=== PATIENT | female | born 1945 | race Caucasian/White ===

== ENCOUNTER 2016-11-27 19:15 | Inpatient (IN) | payer OTHER, MEDICARE ==
[~2016-11-27] VITALS: Ht 162.6 cm; Wt 68.0 kg
[~2016-11-27 19:15] MED LIST: ACIDOPHILUS1 CAP PO; ADVIL MIGRAINE200 MG PO; AMITRIPTYLINE H25 M1 PO; ARICEPT 5MG TAB5 MG PO; ARICEPT10 MG PO; AUGMENTIN 875875 MG PO; BACTRIM DS 8001 TAB PO; COLACE100 MG PO; ESCITALOPRAM10 MG PO; HYDROCORTISONE120 GM TOP; KEFLEX 250MG C250 MG PO; LEXAPRO 5MG5 MG PO; LINZESS145 MCG PO; NAPROSYN 500 M500 MG PO; NAPROSYN250 MG PO; NORVASC 5MG TAB5 MG PO; PRILOSEC 20MG C20 MG PO; PROBIOTIC FORMU1 CA1 PO; REMERON 7.5MG7.5 MG PO; ULTRAM(MONOGRAP50 MG PO
--- NOTE | 2016-11-27 19:35 | NUR ---
PT SHREE FROM [facility] C/O AMS FROM BASELINE DEMENTIA. PER MEDIC PT ABOUT 1800 HAD LOW GRADE FEVER AND STAFF AT [facility] NOTICED AMS FROM BASELINE. MEDIC ESTABISHED IV ACCESS #18 RW. PT IS A&0X1, PT KNOWS WHERE SHE IS, BUT NOT HER NAME OR THE YEAR. PER DAUGHTER AND PTS 2 SISTERS AT BEDSIDE PT IS USUALLY MORE WITH IT AND KNOWS WHAT IS HAPPENING. PER PTS SISTERS PT STATED YESTERDAY THAT WHEN SHE WAS ABOUT TO URINATE SHE WOULD GRAB HER GROIN AND YELL "OW ITS PAINFUL". PER PTS DAUGHTER SHE HAS A HX OF UTIS AND JUST GOT OFF ANTIBIOTICS LAST WK FOR A UTI. PT WAS [facility] ON ARRIVAL AND PER MEDIC WAS TACHY AT [facility]. PT IS BED RIDDEN PER DAUGHTER. PT IS DNR/DNI. BS PRIOR TO ARRIVAL BY MEDIC WAS 119. AWAITING PROVIDER ANUPAM
--- NOTE | 2016-11-27 19:48 | ED AMS/SEIZURE/WEAK/DIZZY ---
History of Present Illness General Chief Complaint: Altered Mental Status Stated Complaint: BIBA FOR AMS Source: patient, family, EMS Exam Limitations: no limitations Vital Signs & Intake/Output Vital Signs & Intake/Output Vital Signs Date Time Temp Pulse Resp B/P Pulse O2 O2 Flow FiO2 Ox Delivery Rate 11/28 0038 98.2 90 18 128/68 96 Room Air 11/27 2058 98.3 11/27 2058 98.3 11/27 1936 98 Room Air 11/27 1915 98.1 124 18 130/64 93 Room Air ED Intake and Output 11/28 0000 11/27 1200 Intake Total Output Total Balance Patient 150 lb Weight Allergies Coded Allergies: doxycycline (UNKNOWN - PER PT SON 01/15/16) Reconcile Medications AMITRIPTYLINE HCL (Amitriptyline Hydrochloride) 25 MG TABLET 1 TAB PO QHS MIGRAINE (Reported) Amlodipine (Norvasc 5MG Tab) 5 MG TAB 1 TAB PO DAILY BP (Reported) Docusate Sodium (Colace) 100 MG SGL 1 SGL PO DAILY STOOL SOFTENER (Reported) Donepezil Hydrochloride (Aricept) 10 MG TAB 1 TAB PO DAILY DEMENTIA (Reported ) Escitalopram Oxalate (Lexapro 5MG) 5 MG TAB 1 TAB PO DAILY MENTAL HEALTH ( Reported) Lactose-Reduced Food (Ensure Liquid) 237 ML LIQUID SUPPLEMENT (Reported) Linaclotide (Linzess) 145 MCG CAPSULE 1 CAP PO DAILY GI (Reported) Mirtazapine (Remeron 7.5MG (1/2 Of 15MG)) 7.5 MG HTAB 1 TAB PO QHS SLEEP HELP (Reported) Naproxen (Naprosyn) 250 MG TAB 1 TAB PO BID PAIN/INFLAMMATION (Reported) Triage Note: PT BIBA FROM [facility] C/O AMS FROM BASELINE DEMENTIA. PER MEDIC PT ABOUT 1800 HAD LOW GRADE FEVER AND STAFF AT [facility] NOTICED AMS FROM BASELINE. MEDIC ESTABISHED IV ACCESS #18 RW. PT IS A&0X1, PT KNOWS WHERE SHE IS, BUT NOT HER NAME OR THE YEAR. PER DAUGHTER AND PTS 2 SISTERS AT BEDSIDE PT IS USUALLY MORE WITH IT AND KNOWS WHAT IS HAPPENING. PER PTS SISTERS PT STATED YESTERDAY THAT WHEN SHE WAS ABOUT TO URINATE SHE WOULD GRAB HER GROIN AND YELL "OW ITS PAINFUL". PER PTS DAUGHTER SHE HAS A HX OF UTIS AND JUST GOT OFF ANTIBIOTICS LAST WK FOR A UTI. PT WAS [facility] ON ARRIVAL AND PER MEDIC WAS [facility]ACH[facility] AT [facility]. PT IS BED RIDDEN PER DAUGHTER. PT IS DNR/DNI. BS PRIOR TO ARRIVAL BY MEDIC WAS 119. AWAITING PROVIDER EVAL Triage Nurses Notes Reviewed? yes Onset: Abrupt Duration: day(s): (2) Timing: recent history Injury Environment: ECF Severity: severe Severity Numbers: 10 No Modifying Factors: none Associated Symptoms: POOR PO INTAKE, LETHARGY, AMS HPI: This is a 71-year-old female with history of dementia, chronic UTIs who [facility] chief complaint of lethargy, fever of 11.6 and tachycardia. According to the family member she hasn't been eating or drinking well lately and looks much more fatigued than baseline. Patient denies any chest pain cough or shortness of breath. She does complain of some lower abdominal pain and some nausea. History of frequent UTIs in the past which required current admissions to the hospital and then eventually permanent residence in the nursing facility. Past History Travel History Traveled to [place] past 21 day No Medical History Any Pertinent Medical History? 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 *No pertinent family history FH: myocardial infarction MOTHER FH: breast cancer in first degree relative SISTER FH: breast cancer in first degree relative Hx Contributory? No Review of Systems Review of Systems Constitutional: Reports: fever, malaise, weakness. EENTM: Reports: no symptoms. Respiratory: Denies: cough, short of breath, sputum production. Cardiovascular: Denies: chest pain. GI: Reports: abdominal pain. Genitourinary: Reports: no symptoms. Musculoskeletal: Reports: no symptoms. Skin: Reports: no symptoms. Neurological/Psychological: Reports: confusion. Hematologic/Endocrine: Denies: bruising, bleeding, polyuria, polydipsia. Immunologic/Allergic: Denies: splenectomy. All Other Systems: Reviewed and Negative Physical Exam Physical Exam General Appearance: lethargic, mild distress, thin Head: normal appearance Eyes: Bilateral: other (SUNKEN). Ears, Nose, Throat: DRY MUCOUS MEMBRANES Neck: normal inspection, supple, full range of motion Respiratory: normal breath sounds, chest non-tender, no respiratory distress Cardiovascular: tachycardia Peripheral Pulses: 2+ radial (R), 2+ radial (L) Gastrointestinal: soft, tenderness (BILATERAL LOWER QUADRANTS) Extremities: normal range of motion Neurologic/Psych: AROUSABLE, ORIENTED X 2 Skin: intact, normal color, warm/dry Core Measures ACS in differential dx? No CVA/TIA Diagnosis: No Severe Sepsis Present: No Septic Shock Present: No ED Sepsis Exam Date of Focused Sepsis Exam: 11/27/16 Time of Focused Sepsis Exam: 2100 Sepsis Cardiac Exam: Tachycardia Sepsis Resp Exam: CTA Sepsis Cap Refill Exam: <2 Sec Sepsis Peripheral Pulse Exam: Normal Sepsis Peripheral Pulse Location: Radial Sepsis Skin Color Exam: Pale Skin Temp/Moisture Exam: Warm/Dry Progress Differential Diagnosis: sepsis, UTI/pyelo, ACUTE KIDNEY INJURY, HYPOVOLEMIA, HYPONATREMIA Plan of Care: Orders Procedure Date/time Status Heart Healthy Diet 11/28 B Active CBC WITHOUT DIFFERENTIAL 11/28 06 Active BASIC ELECTROLYTES PLUS BUN&CR 11/28 06 Active Turn and Reposition 11/28 0340 Active Skin Integrity Protocol 11/28 034 Active Teach/Educate 11/28 313 Active Nutritional Intake, Monitor 11/28 031 Active Isolation 11/28 313 Active Patient Care Conference 11/28 031 Active Activity/Ambulation 11/28 0314 Active Pathway - chart 11/28 0226 Active Code Status 11/28 0226 Active Patient Data 11/28 0142 Active Admit to inpatient 11/28 0037 Active Vital Signs 11/28 0037 Active Code Status 11/28 0037 Complete House Staff 11/28 UNK Active VTE Mechanical Prophylaxis 11/28 UNK Active Vital Signs 11/28 UNK Complete RAPID VIRAL INFLUENZA A 11/27 1999 Complete Telemetry/Meat Blender 11/27 1958 Active Bernal, Insertion/Removal/Asses 11/27 1958 Active CULTURE,URINE 11/27 1958 Active BLOOD CULTURE 11/27 1958 Active URINALYSIS 11/27 1958 Complete TROPONIN LEVEL 11/27 1958 Complete PARTIAL THROMBOPLASTIN TIME 11/27 1958 Complete PROTHROMBIN TIME 11/27 1958 Complete LACTIC ACID 11/27 1958 Complete COMPREHENSIVE METABOLIC PANEL 11/27 1958 Complete CBC WITHOUT DIFFERENTIAL 11/27 1958 Complete EKG 11/27 1958 Active Intake & Output 11/27 1926 Active Current Medications Sig/Cirilo Start time Last Medication Dose Stop Time Status Admin Azithromycin 500 MG ONCE ONE 11/28 2345 CAN (Zithromax) 11/29 004 Dextrose/Water 250 ML (D5W) Amitriptyline HCl 25 MG AT BEDTIME 11/28 220 AC (Elavil 25 Mg. Tablet) Ceftriaxone Sodium 1,000 MG 11/28 220 AC (Rocephin) Mirtazapine 7.5 MG AT BEDTIME 11/28 2200 AC (Remeron) Amlodipine Besylate 5 MG DAILY 11/28 1000 AC (Norvasc) Docusate Sodium 100 MG DAILY 11/28 1000 AC (Colace) Donepezil HCl 10 MG DAILY 11/28 1000 AC (Aricept) Enoxaparin Sodium 40 MG DAILY 11/28 1000 AC (Lovenox) Escitalopram Oxalate 5 MG DAILY 11/28 1000 AC (Lexapro) Polyethylene Glycol 17 GM DAILY 11/28 1000 AC (Miralax) Laboratory Tests 11/27/16 2300: Urinalysis LIGHT H, Urine Color YEL, Urine Clarity TURBD H, Urine pH 8.5 H, Ur Specific [place] 1.020, Urine Protein 100 H, Urine Ketones NEG, Urine Nitrite NEG, Urine Bilirubin NEG, Urine Urobilinogen 0.2, Ur Leukocyte Esterase LARGE H, Ur Microscopic SEDIMENT EXAMINED, Urine RBC 15-25 H, Urine WBC > 75 H, Ur Epithelial Cells PACKD H, Granular Casts RARE H, Urine Mucus MOD H, Urine Hemoglobin LARGE H, Urine Glucose NEG 11/27/169: Lactic Acid Cancelled 11/27/162044: Anion Gap 12, Estimated GFR > 60, BUN/Creatinine Ratio 42.2 H, Glucose 97, Lactic Acid 1.2, Calcium 8.4, Total Bilirubin 0.6, AST 21, ALT 31, Alkaline Phosphatase 141 H, Troponin I 0.02, Total Protein 6.2 L, Albumin 3.0 L, Globulin 3.2, Albumin/Globulin Ratio 0.9 L, PT 13.9 H, INR 1.33 H, APTT 33, CBC w Diff NO MAN DIFF REQ, RBC 4.32, MCV 90.1, MCH 29.7, RDW 14.3, MPV 7.7, Gran % 72.3, Lymphocytes % 13.3 L, Monocytes % 13.1 H, Eosinophils % 0.5, Basophils % 0.8, Absolute Granulocytes 4.9, Absolute Lymphocytes 0.9 L, Absolute Monocytes 0.9 H, Absolute Eosinophils 0, Absolute Basophils 0.1, PUBS MCHC 32.9 L Microbiology 11/27 2299 URINE ROUT: Urine Culture - RECD 11/27 2044 BLOOD: Blood Culture - RECD 11/27 2029 BLOOD: Blood Culture - RECD Diagnostic Imaging: Viewed by Me: Radiology Read, CT Scan. Discussed w/RAD: Radiology Read, CT Scan. Radiology Impression: PATIENT: PREETI ALONSO PRESENT AGE: 71 PATIENT ACCOUNT NO: [id number] : 43 LOCATION: [facility] ORDERING PHYSICIAN: CORIN BAUMAN MD SERVICE DATE: 11/27/16 EXAM TYPE: CAT - CT ABD & PELVIS W IV CONTRAST EXAMINATION: CT ABDOMEN AND PELVIS WITH CONTRAST CLINICAL INFORMATION: Lower abdominal pain. Fever. COMPARISON: CT scan abdomen pelvis 09/08/2015. TECHNIQUE: Multidetector volumetric imaging was performed of the abdomen and pelvis before and after the IV administration of 95 mL of Optiray 320 intravenous contrast. Sagittal and coronal reformatted images were obtained on the technologist's workstation. DLP: 277.03 mGy-cm. FINDINGS: LUNG BASES: Partially visualized irregular lesion in the right infrahilar lung measuring 2.2 cm on image 1. Asymmetric elevation of the right diaphragm compared to left. LIVER, GALLBLADDER, AND BILIARY TREE: The liver is normal in size, shape, and attenuation. No focal hepatic lesion or biliary ductal dilatation is present. No gallstone within the gallbladder. No edema around the gallbladder. The extra hepatic CBD measures 8 mm. No calcified stone within the duct. PANCREAS: The pancreas is atrophic. No inflammation or mass. SPLEEN: Unremarkable. ADRENAL GLANDS: Unremarkable. KIDNEYS AND URETERS: There is hydronephrosis of the right kidney with dilatation of renal pelvis and calyces. There is multiple calcified stones in the kidney from punctate to about 1.5 cm in size. 1.5 cm stone is at the right renal pelvis. There is a right ureteral stent extending through the right ureter. The stent distal pigtail though remains in the distal right ureter has not entered the bladder. Left kidney and ureter are normal. BLADDER: Bernal catheter within the bladder. GASTROINTESTINAL TRACT: Marked diverticulosis of the sigmoid colon. Scattered diverticula throughout the remainder of the colon. Large volume of stool in the rectum and sigmoid. No acute change of the bowel. No diverticulitis. The appendix is not seen. No inflammation in the mesentery. The small bowel loops are unremarkable. ABDOMINAL WALL: No significant hernia is appreciated. LYMPH NODES: Normal. VASCULAR: Aneurysm of the aorta which has been stented. No evidence of aneurysmal leak. PELVIC VISCERA: Uterus is anteverted. No adnexal abnormality. OSSEOUS STRUCTURES: Multilevel degenerative change of the spine. Compression deformity at the superior endplate of L5. There is about 50% loss of height of the L1 vertebrae. No stimulator probe for the right sacral in place. IMPRESSION : 1. Partially visualized opacity at the right infrahilar lung. CT chest will be helpful for further evaluation. 2. Hydronephrosis right kidney with double-J stent in place. The distal portion of the stent overlies the distal right ureter now within the bladder. Multiple stones right kidney. 3. Bernal catheter within the bladder. 4. Marked diverticulosis of colon but no acute change of the bowel. DICTATED BY: ANTHONY PARKER MD DATE/TIME DICTATED:11/27/162249 DETONATOR MAKER :ALLISON DATE/TIME TRANSCRIBED:11/27/162249 CONFIDENTIAL, DO NOT COPY WITHOUT APPROPRIATE AUTHORIZATION. <Electronically signed in Other Vendor System> SIGNED BY: ANTHONY PARKER MD 11/28/16 0004 CXR Impression: PATIENT: PREETI ALONSO PRESENT AGE: 71 PATIENT ACCOUNT NO: [id number] : 43 LOCATION: [facility] ORDERING PHYSICIAN: CORIN BAUMAN MD SERVICE DATE: 11/27/16 EXAM TYPE: RAD - XRY-PORTABLE CHEST XRAY EXAMINATION: XR PORTABLE CHEST CLINICAL INFORMATION: Fever. Altered mental status. COMPARISON: Chest x-ray 09/10/2015 . Chest x-ray 09/08/2015 TECHNIQUE: Portable AP portable view of the chest was obtained. 11/27/2016 FINDINGS: Linear scarring right midlung. Overall volume loss right hemithorax compared to left stable since prior exam. No acute infiltrate. No pulmonary vascular congestion. No pleural effusion. No pneumothorax. Heart size is normal. Thoracic aorta is uncoiled. IMPRESSION: No acute change of the chest. DICTATED BY: ANTHONY PARKER MD DATE/TIME DICTATED:11/27/162042 DETONATOR MAKER:ALLISON DATE/TIME TRANSCRIBED:11/27/162042 CONFIDENTIAL, DO NOT COPY WITHOUT APPROPRIATE AUTHORIZATION. <Electronically signed in Other Vendor System> SIGNED BY: ANTHONY PARKER MD 11/27/162047 Initial ED EKG: NSR (@92 BPM) Rhythm Strip: sinus tachycardia Departure Departure Time of Disposition: 6 Disposition: STILL A PATIENT Condition: Stable Clinical Impression Primary Impression: Dehydration Secondary Impressions: Tachycardia Referrals: RIVKA FIORE,JOANNE Stinson (PCP/Family) Departure Forms: Customer Survey General Discharge Information Admission Note Spoke With: MARA LINDSEY MD Documentation of Exam: Documentation of any treatments & extenuating circumstances including Concerns Regarding Discharge (functional status, medication knowledge or non-compliance, living conditions, etc.) that warrant an admission rather than observation: [IV FLUIDS, IV ABX, MONITOR I/O, F/U CULTURES, UROLOGY CONSULT DR FARAH, CONSIDER CT CHEST] Critical Care Note Critical Care Note Critical Care Time: 30-74 min
--- NOTE | 2016-11-27 20:14 | NUR ---
DR BAUMAN IN FOR [facility]
--- NOTE | 2016-11-27 20:24 | NUR ---
THIS RN MEDICATED PT WITH IV TYLENOL AND LITER #1 NS BOLUS PER EMAR.
--- NOTE | 2016-11-27 20:26 | NUR ---
GL[facility] PLACED IN PT, UO 10CC IN TUBE, NOT ENOUGHT URINE TO SEND TO LAB FOR URINE TRIO. THIS PT STILL NEEDS URINE SAMPLE SENT TO LAB
--- NOTE | 2016-11-27 20:48 | RADIOLOGY REPORT ---
EXAMINATION: XR PORTABLE CHEST CLINICAL INFORMATION: Fever. Altered mental status. COMPARISON: Chest x-ray 09/10/2015 . Chest x-ray 09/08/2015 TECHNIQUE: Portable AP portable view of the chest was obtained. 11/27/2016 FINDINGS: Linear scarring right midlung. Overall volume loss right hemithorax compared to left stable since prior exam. No acute infiltrate. No pulmonary vascular congestion. No pleural effusion. No pneumothorax. Heart size is normal. Thoracic aorta is uncoiled. IMPRESSION: No acute change of the chest.
--- NOTE | 2016-11-27 20:57 | NUR ---
SITE #2 IV ACCESS ESTABLISHED BY THIS RN, LW #20 WITH NS BOLUS LITER #2 INFUSING.
--- NOTE | 2016-11-27 20:58 | NUR ---
BLOOD CULTURES COLLECTED AND SENT BY THIS RN, LABS COLLECTED AND SENT BY THIS RN (LAV, BARON, BLUE, SST)
--- NOTE | 2016-11-27 21:03 | NUR ---
PT REPOSITIONED IN BED FOR COMFORT PER REQUEST.
[2016-11-27 21:05] LABS: ABSOLUTE BASOPHIL COUNT 0.1 /CUMM (0.0-0.2); ABSOLUTE EOSINOPHIL COUNT 0 /CUMM (0.0-0.7); ABSOLUTE GRANULOCYTE CT 4.9 /CUMM (1.4-6.5); ABSOLUTE LYMPH COUNT 0.9 /CUMM (1.2-3.4); ABSOLUTE MONOCYTE COUNT 0.9 /CUMM (0.10-0.60); BASOPHIL % 0.8 % (0.0-2.0); EOSINOPHIL % 0.5 % (0-5); GRANULOCYTE % 72.3 % (42.2-75.2); MEAN CORPUSCULAR HGB 29.7 PG (27.0-31.0); MEAN CORPUSCULAR HGB CONC 32.9 G/DL (33.0-37.0); MEAN CORPUSCULAR VOLUME 90.1 FL (81.0-99.0); MEAN PLATELET VOLUME 7.7 FL (7.4-10.4); PLATELET COUNT 396 /CUMM (130-400); RBC DISTRIBUTION WIDTH 14.3 % (11.5-14.5); RED BLOOD CELL CT 4.32 /CUMM (4.20-5.40); WHITE BLOOD CELL COUNT 6.8 /CUMM (4.8-10.8)
[2016-11-27 21:10] LABS: PT 13.9 SEC (9.4-12.5); PTT 33 SEC (25-37)
--- NOTE | 2016-11-27 21:28 | NUR ---
LITER #3 INFUSING NS BOLUS.
[2016-11-27] MEDS ORDERED: ENSURE LIQUID237 ML (22:10)
--- NOTE | 2016-11-27 22:20 | NUR ---
PT TO CT SCAN VIA STRETCHER
--- NOTE | 2016-11-27 22:36 | NUR ---
PT BACK FROM CT SCAN VIA STRETCHER
--- NOTE | 2016-11-27 23:04 | NUR ---
URINE TRIO SENT BY THIS RN
--- NOTE | 2016-11-27 23:19 | NUR ---
DR BAUMAN REPOSITIONED [facility] CATHETER, THIS RN HUNG D51/2NS INFUSING AT 150ML/HR.
--- NOTE | 2016-11-28 00:04 | CT SCAN REPORT ---
EXAMINATION: CT ABDOMEN AND PELVIS WITH CONTRAST CLINICAL INFORMATION: Lower abdominal pain. Fever. COMPARISON: CT scan abdomen pelvis 09/08/2015. TECHNIQUE: Multidetector volumetric imaging was performed of the abdomen and pelvis before and after the IV administration of 95 mL of Optiray 320 intravenous contrast. Sagittal and coronal reformatted images were obtained on the technologist's workstation. DLP: 277.03 mGy-cm. FINDINGS: LUNG BASES: Partially visualized irregular lesion in the right infrahilar lung measuring 2.2 cm on image 1. Asymmetric elevation of the right diaphragm compared to left. LIVER, GALLBLADDER, AND BILIARY TREE: The liver is normal in size, shape, and attenuation. No focal hepatic lesion or biliary ductal dilatation is present. No gallstone within the gallbladder. No edema around the gallbladder. The extra hepatic CBD measures 8 mm. No calcified stone within the duct. PANCREAS: The pancreas is atrophic. No inflammation or mass. SPLEEN: Unremarkable. ADRENAL GLANDS: Unremarkable. KIDNEYS AND URETERS: There is hydronephrosis of the right kidney with dilatation of renal pelvis and calyces. There is multiple calcified stones in the kidney from punctate to about 1.5 cm in size. 1.5 cm stone is at the right renal pelvis. There is a right ureteral stent extending through the right ureter. The stent distal pigtail though remains in the distal right ureter has not entered the bladder. Left kidney and ureter are normal. BLADDER: Bernal catheter within the bladder. GASTROINTESTINAL TRACT: Marked diverticulosis of the sigmoid colon. Scattered diverticula throughout the remainder of the colon. Large volume of stool in the rectum and sigmoid. No acute change of the bowel. No diverticulitis. The appendix is not seen. No inflammation in the mesentery. The small bowel loops are unremarkable. ABDOMINAL WALL: No significant hernia is appreciated. LYMPH NODES: Normal. VASCULAR: Aneurysm of the aorta which has been stented. No evidence of aneurysmal leak. PELVIC VISCERA: Uterus is anteverted. No adnexal abnormality. OSSEOUS STRUCTURES: Multilevel degenerative change of the spine. Compression deformity at the superior endplate of L5. There is about 50% loss of height of the L1 vertebrae. No stimulator probe for the right sacral in place. IMPRESSION: 1. Partially visualized opacity at the right infrahilar lung. CT chest will be helpful for further evaluation. 2. Hydronephrosis right kidney with double-J stent in place. The distal portion of the stent overlies the distal right ureter now within the bladder. Multiple stones right kidney. 3. Bernal catheter within the bladder. 4. Marked diverticulosis of colon but no acute change of the bowel.
--- NOTE | 2016-11-28 00:14 | NUR ---
IN TO [facility] AND PT AWAITING ADMISSION.
--- NOTE | 2016-11-28 01:03 | NUR ---
HOUSE STAFF IN TO EVAL
--- NOTE | 2016-11-28 02:18 | NUR ---
Emergency Dept [facility] Admit Note: To be admitted to [facility] by DR. LINDSEY with OBSTRUCTIVE UROPATHY as the diagnosis, to 2NB #207-1 location. Nursing Bioprocessing Manufacturing Technician and admitting notified 11/28/16 at 0154
--- NOTE | 2016-11-28 02:31 | History & Physical ---
GENARO WHEELER MD 11/28/16 0230: General Information and HPI MD Statement: I have seen and personally examined PREETI ALONSO and documented this H&P. The patient is a 71 year old F who presented with a patient stated chief complaint of [AMS, fever and suprapubic pain]. Source of Information: family, W10 Exam Limitations: no limitations History of Present Illness: This is 71-year-old female with past medical history of lung cancer status post chemoradiation, advanced dementia, migraine headache, hypertension, hyperlipidemia, nephrolithiasis status post ESWL and right ureteral j-tube placement, urinary incontinence, recurrent UTI currently on maintenance dose nitrofurantoin was brought in by ambulance from [facility] after patient found confused, lethargic with fever of 101.6.. Patient has advanced dementia and also history of her gathered from patient's daughter over at bedside and w-10. As per w-10 patient had fewer of 101.6 at F with low blood pressure of 104/70. As per EMS note patient was complaining of groin pain while urinating. Patient had recurrent UTIs in the past and most recently was treated for urinary infection 2 weeks prior to admission. In ER patient noted afebrile. Patient received total of 4 L of IV fluid hydration with significant blood pressure improvement in mental status improvement. On evaluation in ER patient was pleasant lying comfortably in bed. On questioning patient complained of suprapubic pain denied any urinary frequency, burning. Patient also denies any chest pain, shortness of breath, nausea, vomiting, sick contact, abdominal pain, weakness. Patient's appetite was good and was asking for ENSURE. Patient's daughter who was at bedside denies any recent history of urological intervention DONE by patient's neurologist Dr. Oconnell. Allergies/Medications Allergies: Coded Allergies: doxycycline (UNKNOWN - PER PT SON 01/15/16) Home Med list AMITRIPTYLINE HCL (Amitriptyline Hydrochloride) 25 MG TABLET 1 TAB PO QHS MIGRAINE (Reported) Amlodipine (Norvasc 5MG Tab) 5 MG TAB 1 TAB PO DAILY BP (Reported) Docusate Sodium (Colace) 100 MG SGL 1 SGL PO DAILY STOOL SOFTENER (Reported) Donepezil Hydrochloride (Aricept) 10 MG TAB 1 TAB PO DAILY DEMENTIA (Reported ) Escitalopram Oxalate (Lexapro 5MG) 5 MG TAB 1 TAB PO DAILY MENTAL HEALTH ( Reported) Lactose-Reduced Food (Ensure Liquid) 237 ML LIQUID SUPPLEMENT (Reported) Linaclotide (Linzess) 145 MCG CAPSULE 1 CAP PO DAILY GI (Reported) Mirtazapine (Remeron 7.5MG (1/2 Of 15MG)) 7.5 MG HTAB 1 TAB PO QHS SLEEP HELP (Reported) Naproxen (Naprosyn) 250 MG TAB 1 TAB PO BID PAIN/INFLAMMATION (Reported) Compliance With Home Meds: GOOD Past History Travel History Traveled to [place] past 21 day No Medical History Neurological: migraine EENT: NONE Cardiovascular: aortic aneurysm, hypertension, hyperlipidemia Respiratory: lung ca s/p chemo/radiation Hepatic: NONE Renal: UTI Musculoskeletal: NONE Psychiatric: insomnia, mild intermittent dementia as pre daughter Endocrine: NONE Blood Disorders: NONE Cancer(s): lung cancer, LUNG CA 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 *No pertinent family history FH: myocardial infarction MOTHER FH: breast cancer in first degree relative SISTER FH: breast cancer in first degree relative Psychosocial History Where do you live? Extended Care Facility Services at Home: Nursing Primary Language: Malay Smoking Status: Never Smoked ETOH Use: denies use Illicit Drug Use: denies illicit drug use Living Will? yes Functional Ability ADLs Independent: dressing, eating, toileting, bathing. Ambulation: independent Review of Systems Review of Systems Constitutional: Reports: see HPI. Exam & Diagnostic Data Last 24 Hrs of Vital Signs/I&O Vital Signs Date Time Temp Pulse Resp B/P Pulse O2 O2 Flow FiO2 Ox Delivery Rate 11/28 0038 98.2 90 18 128/68 96 Room Air 11/27 2058 98.3 11/27 2058 98.3 11/27 1935 98 Room Air 11/27 1915 98.1 124 18 130/64 93 Room Air Intake & Output 11/28 0800 11/28 0000 11/27 1600 Intake Total Output Total 300 Balance -300 Output, Urine 300 Patient 150 lb Weight Physical Exam General Appearance Alert, No Acute Distress, ORIENTED TO SELF, NOT TO PLACE AND TIME Skin No Rashes HEENT Atraumatic, PERRLA, EOMI, Mucous Membr. moist/pink Neck Supple, No JVD Lymphatic Cervical nl Cardiovascular Regular Rate, Normal S1, Normal S2, No Murmurs Lungs Clear to Auscultation, Normal Air Movement Abdomen Normal Bowel Sounds, Soft, SUPRAPUBIC TENDERNESS Neurological Normal Speech, Strength at 5/5 X4 Ext, Normal Tone, Sensation Intact, Cranial Nerves 3-12 NL Extremities No Edema Vascular Normal Pulses, Pulses Symmetrical, capillari refill normal Last 24 Hrs of Labs/Tommie: Laboratory Tests 11/27/162299: Urinalysis LIGHT H, Urine Color YEL, Urine Clarity TURBD H, Urine pH 8.5 H, Ur Specific [place] 1.020, Urine Protein 100 H, Urine Ketones NEG, Urine Nitrite NEG, Urine Bilirubin NEG, Urine Urobilinogen 0.2, Ur Leukocyte Esterase LARGE H, Ur Microscopic SEDIMENT EXAMINED, Urine RBC 15-25 H, Urine WBC > 75 H, Ur Epithelial Cells PACKD H, Granular Casts RARE H, Urine Mucus MOD H, Urine Hemoglobin LARGE H, Urine Glucose NEG 11/27/162258: Lactic Acid Cancelled 11/27/162044: Anion Gap 12, Estimated GFR > 60, BUN/Creatinine Ratio 42.2 H, Glucose 97, Lactic Acid 1.2, Calcium 8.4, Total Bilirubin 0.6, AST 21, ALT 31, Alkaline Phosphatase 141 H, Troponin I 0.02, Total Protein 6.2 L, Albumin 3.0 L, Globulin 3.2, Albumin/Globulin Ratio 0.9 L, PT 13.9 H, INR 1.33 H, APTT 33, CBC w Diff NO MAN DIFF REQ, RBC 4.32, MCV 90.1, MCH 29.7, RDW 14.3, MPV 7.7, Gran % 72.3, Lymphocytes % 13.3 L, Monocytes % 13.1 H, Eosinophils % 0.5, Basophils % 0.8, Absolute Granulocytes 4.9, Absolute Lymphocytes 0.9 L, Absolute Monocytes 0.9 H, Absolute Eosinophils 0, Absolute Basophils 0.1, PUBS MCHC 32.9 L Microbiology 11/27 2299 URINE ROUT: Urine Culture - RECD 11/27 2044 BLOOD: Blood Culture - RECD 11/27 2029 BLOOD: Blood Culture - RECD Diagnostic Data EKG Results Normal sinus rhythm at rate of 98, no acute ST-T changes, QTC 491 CXR Results Unremarkable. No acute change of the chest. Other Results CT ABD & PELVIS W IV CONTRAST: 1. Partially visualized opacity at the right infrahilar lung. 2. Hydronephrosis right kidney with double-J stent in place. The distal portion of the stent overlies the distal right ureter now within the bladder. Multiple stones right kidney. 3. Bernal catheter within the bladder. 4. Marked diverticulosis of colon but no acute change of the bowel. Assessment/Plan Assessment: This is 71-year-old female with PMH of lung cancer s/p chemoradiation, advanced dementia, migraine headache, hypertension, hyperlipidemia, nephrolithiasis s/p ESWL and right ureteral j-tube placement, urinary incontinence, recurrent UTI currently on maintenance dose nitrofurantoin was brought in by ambulance from [facility] after patient found confused, lethargic with fever of 101.6 found to have dirty urine on urinalysis with suprapubic tenderness likely suggestive of complicated UTI in setting of obstructive uropathy and right hydronephrosis. 1. Sepsis secondary to both patient Complicated UTI in setting of obstructive uropathy and right hydronephrosis Patient had recurrent UTI and was maintain on nitrofurantoin but as per microbiology report patient had frequent Escherichia coli urinary infection which is very resistant to nitrofurantoin - Admit to general medicine floor - Follow-up blood and urine culture - Start empiric IV ceftriaxone - Continue IV fluid hydration 2. Nephrolithiasis with obstructive uropathy s/p right J-tube placement - Urology consult in a.m. 3. Dementia Continue Aricept 4. Depression Continue home dose amitriptyline, Lexapro, Remeron 5. Hypertension Continue amlodipine 5 mg in a.m. 6. DVT prophylaxis Subcutaneous Lovenox 7. DNR/DNI As Ranked By This Provider Problem List: 1. Hydronephrosis 2. Sepsis due to urinary tract infection Core Measures/Miscellaneous Acute Coronary Syndrome ACS Diagnosis: No Cerebrovascular Accident CVA/TIA Diagnosis: No Congestive Heart Failure CHF Diagnosis: No Venous Thromboembolism VTE Risk Factors: Age > 40 VTE Prophylaxis Ordered Inpt: Pharm- Lovenox No Mech VTE prophylaxis d/t: No contraindications No VTE Pharm Prophylaxis d/t: No contraindications VTE Diagnosis: No VTE Type: NONE VTE Confirmed by (Test): NONE Severe Sepsis Severe Sepsis Present: No BC x2: Yes Lactic Acid x2: No (first lactic acid was normal) IV ABX Broad Spectrum: Yes NS/LR Started: Yes Septic Shock Septic Shock Present: No Miscellaneous Documentation Attending Case Discussed With: MARA LINDSEY MD Primary Care Physician: JOANNE TINEO MD Patient sees these Specialists deep Level of Patient Care: General Medicine Consults Needed: Consulting Specialty: Urology Resident Review Statement Resident Statement: examined this patient, discussed with graduate internship, agreed with graduate internship, discussed with family, reviewed EMR data (avail), reviewed images, amended to note Other Findings: see HPI ALISA LINDSEY MD 11/28/16 0628: Attending MD Review Statement Attending Statement Attending MD Statement: examined this patient, discuss w/resident/PA/BINDER STRIPPER MACHINE, agreed w/resident/PA/BINDER STRIPPER MACHINE, discussed with family Attending Assessment/Plan: 71 yo F with h/o lung cancer s/p chemoradiation, dementia, HTN, HLD, nephrolithiasis, UI, recurrent UTIs, last admitted to [place] (Aug 2015) for sepsis of urological origin and obstructive uropathy s/p right ureteral stone removal and stent placement, is brought in from [facility] for evaluation of lethargy, confusion and fever of 101.6. Daughter Cipriano Prabhakar at bedside who provides history. Patient has a poor appetite. Patient has had multiple UTIs in the past 1 year that have been treated with antibiotics, and she has been on chronic macrodantin for UTI prophylaxis. However, her last 2 urine cultures have grown Ecoli with intermediate sensitivity to macrodantin. Per records, patient has had right ureter ESWL with stent removal by Dr. Oconnell in January 2016, but patient or daughter do not remember this. VSS. Labs: Na 146, BUN 38, trop neg. UA positive. CXR neg. CT abd/pelvis: opacity right infrahilar lung. Hydronephrosis right kidney with double J-stent in place, multiple stones right kidney. EKG:SR. 1. Obstructive uropathy with right hydronephrosis in the setting of nephrolithiasis, with UTI. Recurrent UTIs. Obtain urine culture, initiate IV ceftriaxone, IV fluids, obtain Urology consult. 2. Right infrahilar lung opacity. Patient maintaining O2 sats, if any dyspnea or hypoxia, consider CT chest to further evaluate this. 3. Hypernatremia 2/2 dehydration. DVT ppx Lovenox. DNR/I.
--- NOTE | 2016-11-28 02:40 | NUR ---
REPORT GIVEN TO FABIOLA FIGUEROA 2NB
--- NOTE | 2016-11-28 03:42 | NUR ---
NURSE NOTE: PT ARRIVED TO WITH SISTER AND ED STAFF. REPORT RECIEVED FROM YARED IN ED. VSS. PT AAOX1-2, FORGETFULL. BED ALARM PLACED, BED LOWEST POSITION, ALPS APPLIED. ASSESSED, WILL T&R Q2H REDNESS TO BOTTOM AND BACK BUT BLANCHABLE. WILL ORDER SIZEWISE IN AM. PT HAS GLOVER IN PLACE, IVF, CLEAR PETE/DARK YELLOW. ORIENTED TO ROOM/ CALL GAITAN IN REACH AND DEMONSTRATED PT HWO TO CALL FOR HELP. WILL MONITOR.
[2016-11-28 04:03] VITALS: BP 129/77
--- NOTE | 2016-11-28 06:28 | Admission Certification ---
Admission Certification Certification Statement - As attending physician, I certify that at the time of - admission, based on clinical presentation, severity of - symptoms, need for further diagnostic testing and - therapeutic interventions, and risk of adverse outcomes - without in-hospital treatment, in my clinical assessment, - this patient requires an acute hospital stay for a minimum - of two nights or longer. I have also considered psychsocial - factors such as support system, advanced age, financial - issues, cognitive issues, and failed out-patient treatments, - past re-admission history, safety of patient, and lack of - compliance as applicable. Specific rationale supporting this admission is: Recurrent UTI, obstructive uropathy.
[2016-11-28 08:13] LABS: ABSOLUTE BASOPHIL COUNT 0 /CUMM (0.0-0.2); ABSOLUTE EOSINOPHIL COUNT 0.2 /CUMM (0.0-0.7); ABSOLUTE GRANULOCYTE CT 3.5 /CUMM (1.4-6.5); ABSOLUTE LYMPH COUNT 0.8 /CUMM (1.2-3.4); ABSOLUTE MONOCYTE COUNT 0.7 /CUMM (0.10-0.60); MEAN CORPUSCULAR VOLUME 91.3 FL (81.0-99.0); MEAN PLATELET VOLUME 7.8 FL (7.4-10.4); WHITE BLOOD CELL COUNT 5.2 /CUMM (4.8-10.8)
[2016-11-28 08:17] VITALS: BP 105/63
[2016-11-28 08:28] LABS: GRANULOCYTE % 67.3 % (42.2-75.2); MEAN CORPUSCULAR HGB 30.3 PG (27.0-31.0); MEAN CORPUSCULAR HGB CONC 33.2 G/DL (33.0-37.0); PLATELET COUNT 300 /CUMM (130-400); RBC DISTRIBUTION WIDTH 14.3 % (11.5-14.5); RED BLOOD CELL CT 3.59 /CUMM (4.20-5.40)
[2016-11-28 08:31] LABS: HEMATOCRIT 32.8 % (37-47)
[2016-11-28 16:32] VITALS: BP 144/93
--- NOTE | 2016-11-28 16:54 | PN- Att Addend ---
See Addendum Attending Addendum Attending Brief Note 71-year-old female with past medical history of lung cancer status post chemoradiation- unclear when last f/u with oncology was per patients daughter, advanced dementia, migraine headache, hypertension, hyperlipidemia, nephrolithiasis status post ESWL and right ureteral j-tube placement- late 2014 or early 2015, urinary incontinence, recurrent UTI currently on maintenance dose nitrofurantoin was brought in by ambulance from [facility] after patient found confused, lethargic with fever of 101.6. CT scan finding of Hydronephrosis right kidney with double J-stent in place, multiple stones right kidney. Pt seen and examined and d/w pts daughter at bedside the care plan. A/p Obstructive uropathy with complicated UTI- cont iv ceftriaxone, urology consult pending. will f/u on urology recommendations. Infrahilar lung opacity- will get CT chest to find out more about the opacity. d/w daughter the care plan.
--- NOTE | 2016-11-28 21:27 | Cons- Urology ---
General Information and HPI Consulting Request Date of Consult: 11/28/16 Requested By: CÉSAR FIORE,MARA Reason for Consult: right stone, with hydro. stent Source of Information: old records Exam Limitations: dementia History of Present Illness: 71 year old with multiple severe medical problems, advanced dementia, and kidney stones. Pt present with fevere, frequent UTI, and abd. pain. Ct reveals right hydro. with stones and stent. Allergies/Medications Allergies: Coded Allergies: doxycycline (UNKNOWN - PER PT SON 01/15/16) Home Med List: AMITRIPTYLINE HCL (Amitriptyline Hydrochloride) 25 MG TABLET 1 TAB PO QHS MIGRAINE (Reported) Amlodipine (Norvasc 5MG Tab) 5 MG TAB 1 TAB PO DAILY BP (Reported) Docusate Sodium (Colace) 100 MG SGL 1 SGL PO DAILY STOOL SOFTENER (Reported) Donepezil Hydrochloride (Aricept) 10 MG TAB 1 TAB PO DAILY DEMENTIA (Reported ) Escitalopram Oxalate (Lexapro 5MG) 5 MG TAB 1 TAB PO DAILY MENTAL HEALTH ( Reported) Lactose-Reduced Food (Ensure Liquid) 237 ML LIQUID SUPPLEMENT (Reported) Linaclotide (Linzess) 145 MCG CAPSULE 1 CAP PO DAILY GI (Reported) Mirtazapine (Remeron 7.5MG (1/2 Of 15MG)) 7.5 MG HTAB 1 TAB PO QHS SLEEP HELP (Reported) Naproxen (Naprosyn) 250 MG TAB 1 TAB PO BID PAIN/INFLAMMATION (Reported) Current Medications: Current Medications Sig/Cirilo Start time Last Medication Dose Route Stop Time Status Admin Amitriptyline HCl 25 MG AT BEDTIME 11/28 2199 AC PO Amitriptyline HCl 25 MG AT BEDTIME 11/28 0245 DC PO Amlodipine Besylate 5 MG DAILY 11/28 1000 AC 11/28 PO 1016 Azithromycin 500 MG ONCE ONE 11/28 2345 CAN Dextrose/Water 250 ML IV 11/29 0044 Ceftriaxone Sodium 1,000 MG 11/28 220 AC IV Dextrose/Sodium 1,000 ML Q6H 11/27 2330 AC 11/28 Chloride IV 2033 Docusate Sodium 100 MG DAILY 11/28 1000 AC 11/28 PO 1016 Donepezil HCl 10 MG DAILY 11/28 1000 AC 11/28 PO 1016 Enoxaparin Sodium 40 MG DAILY 11/28 1000 AC 11/28 SC 1016 Escitalopram Oxalate 5 MG DAILY 11/28 1000 AC 11/28 PO 1016 Mirtazapine 7.5 MG AT BEDTIME 11/28 2200 AC PO Polyethylene Glycol 17 GM DAILY 11/28 1000 AC 11/28 PO 1017 Potassium Chloride 60 MEQ ONCE ONE 11/28 829 DC 11/28 PO 11/28 830 1016 Sodium Chloride 1,000 ML BOLUS ONE 11/27 2130 DC 11/27 IV 11/27 Sodium Chloride 1,000 ML BOLUS ONE 11/27 2044 DC 11/27 IV 11/27 Past History Medical History Neurological: migraine EENT: NONE Cardiovascular: aortic aneurysm, hypertension, hyperlipidemia Respiratory: lung ca s/p chemo/radiation Hepatic: NONE Renal: UTI Musculoskeletal: NONE Psychiatric: insomnia, mild intermittent dementia as pre daughter Endocrine: NONE Blood Disorders: NONE Cancer(s): lung cancer, LUNG CA 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 *No pertinent family history FH: myocardial infarction MOTHER FH: breast cancer in first degree relative SISTER FH: breast cancer in first degree relative Psychosocial History Where Do You Live? Extended Care Facility Services at Home: Nursing Primary Language: Fijian Smoking Status: Never Smoked ETOH Use: denies use Illicit Drug Use: denies illicit drug use Living Will? yes Functional Ability ADLs Independent: dressing, eating, toileting, bathing. Ambulation: independent Employment History Retired? yes Review of Systems Review of Systems Constitutional: Reports: fever. EENTM: Reports: no symptoms. Cardiovascular: Reports: no symptoms. Respiratory: Reports: no symptoms. GI: Reports: see HPI. Skin: Reports: no symptoms. Neurological/Psychological: Reports: confusion, dementia. Exam & Diagnostic Data Vital Signs and I&O Vital Signs Date Time Temp Pulse Resp B/P Pulse O2 O2 Flow FiO2 Ox Delivery Rate 11/28 1632 97.9 90 20 144/93 97 11/28 1016 125/70 11/28 0821 96.1 80 20 92 11/28 0817 105/63 11/28 0403 98.2 90 20 129/77 91 Room Air 11/28 0038 98.2 90 18 128/68 96 Room Air Intake & Output 11/28 1600 11/28 0800 11/28 0000 11/27 1600 11/27 0811/27 0000 Intake Total 1560 990 Output Total 950 850 Balance 610 140 Intake, IV 1200 750 Intake, Oral 360 240 Number 0 0 Bowel Movements Output, Urine 950 850 Patient 150 lb 150 lb Weight Physical Exam General Appearance: well developed/nourished, no apparent distress Head: atraumatic, normal appearance Eyes: Bilateral: normal appearance. Respiratory: normal breath sounds Cardiovascular: regular rate/rhythm Gastrointestinal: normal bowel sounds Back: no vertebral tenderness Extremities: normal inspection Neurologic/Psych: awake Skin: intact, normal color Last 24 Hours of Labs: Laboratory Tests 11/28 11/27 0625 2300 Chemistry Sodium (137 - 145 mmol/L) 143 Potassium (3.5 - 5.1 mmol/L) 3.2 L Chloride (98 - 107 mmol/L) 110 H Carbon Dioxide (22 - 30 mmol/L) 25 Anion Gap (5 - 16) 8 BUN (7 - 17 mg/dL) 23 H Creatinine (0.5 - 1.0 mg/dL) 0.7 Estimated GFR (>60 ml/min) > 60 BUN/Creatinine Ratio (7 - 25 %) 32.9 H Hematology CBC w Diff NO MAN DIFF REQ WBC (4.8 - 10.8 /CUMM) 5.2 RBC (4.20 - 5.40 /CUMM) 3.59 L Hgb (12.0 - 16.0 G/DL) 10.9 L Hct (37 - 47 %) 32.8 L MCV (81.0 - 99.0 FL) 91.3 MCH (27.0 - 31.0 PG) 30.3 RDW (11.5 - 14.5 %) 14.3 Plt Count (130 - 400 /CUMM) 300 MPV (7.4 - 10.4 FL) 7.8 Gran % (42.2 - 75.2 %) 67.3 Lymphocytes % (20.5 - 51.1 %) 15.7 L Monocytes % (1.7 - 9.3 %) 13.0 H Eosinophils % (0 - 5 %) 3.0 Basophils % (0.0 - 2.0 %) 1.0 Absolute Granulocytes (1.4 - 6.5 /CUMM) 3.5 Absolute Lymphocytes (1.2 - 3.4 /CUMM) 0.8 L Absolute Monocytes (0.10 - 0.60 /CUMM) 0.7 H Absolute Eosinophils (0.0 - 0.7 /CUMM) 0.2 Absolute Basophils (0.0 - 0.2 /CUMM) 0 PUBS MCHC (33.0 - 37.0 G/DL) 33.2 Urines Urinalysis LIGHT H Urine Color (YEL,AMB,STR) YEL Urine Clarity (CLEAR) TURBD H Urine pH (5.0 - 8.0) 8.5 H Ur Specific [place] (1.001 - 1.035) 1.020 Urine Protein (NEG,<30 MG/DL) 100 H Urine Ketones (NEG) NEG Urine Nitrite (NEG) NEG Urine Bilirubin (NEG) NEG Urine Urobilinogen (0.1 - 1.0 EU/dl) 0.2 Ur Leukocyte Esterase (NEG) LARGE H Ur Microscopic SEDIMENT EXAMINED Urine RBC (0 - 5 /HPF) 15-25 H Urine WBC (0 - 2 /HPF) > 75 H Ur Epithelial Cells (NONE,FEW) PACKD H Granular Casts (NONE /LPF) RARE H Urine Mucus (FEW,NONE) MOD H Urine Hemoglobin (NEG) LARGE H Urine Glucose (N MG/DL) NEG 11/27 2258 Chemistry Lactic Acid Cancelled Imaging Results: PATIENT: PREETI ALONSO PRESENT AGE: 71 PATIENT ACCOUNT NO: [id number] : 43 LOCATION: [facility] ORDERING PHYSICIAN: CORIN BAUMAN MD SERVICE DATE: 11/27/16 EXAM TYPE: CAT - CT ABD & PELVIS W IV CONTRAST EXAMINATION: CT ABDOMEN AND PELVIS WITH CONTRAST CLINICAL INFORMATION: Lower abdominal pain. Fever. COMPARISON: CT scan abdomen pelvis 09/08/2015. TECHNIQUE: Multidetector volumetric imaging was performed of the abdomen and pelvis before and after the IV administration of 95 mL of Optiray 320 intravenous contrast. Sagittal and coronal reformatted images were obtained on the technologist's workstation. DLP: 277.03 mGy-cm. FINDINGS: LUNG BASES: Partially visualized irregular lesion in the right infrahilar lung measuring 2.2 cm on image 1. Asymmetric elevation of the right diaphragm compared to left. LIVER, GALLBLADDER, AND BILIARY TREE: The liver is normal in size, shape, and attenuation. No focal hepatic lesion or biliary ductal dilatation is present. No gallstone within the gallbladder. No edema around the gallbladder. The extra hepatic CBD measures 8 mm. No calcified stone within the duct. PANCREAS: The pancreas is atrophic. No inflammation or mass. SPLEEN: Unremarkable. ADRENAL GLANDS: Unremarkable. KIDNEYS AND URETERS: There is hydronephrosis of the right kidney with dilatation of renal pelvis and calyces. There is multiple calcified stones in the kidney from punctate to about 1.5 cm in size. 1.5 cm stone is at the right renal pelvis. There is a right ureteral stent extending through the right ureter. The stent distal pigtail though remains in the distal right ureter has not entered the bladder. Left kidney and ureter are normal. BLADDER: Bernal catheter within the bladder. GASTROINTESTINAL TRACT: Marked diverticulosis of the sigmoid colon. Scattered diverticula throughout the remainder of the colon. Large volume of stool in the rectum and sigmoid. No acute change of the bowel. No diverticulitis. The appendix is not seen. No inflammation in the mesentery. The small bowel loops are unremarkable. ABDOMINAL WALL: No significant hernia is appreciated. LYMPH NODES: Normal. VASCULAR: Aneurysm of the aorta which has been stented. No evidence of aneurysmal leak. PELVIC VISCERA: Uterus is anteverted. No adnexal abnormality. OSSEOUS STRUCTURES: Multilevel degenerative change of the spine. Compression deformity at the superior endplate of L5. There is about 50% loss of height of the L1 vertebrae. No stimulator probe for the right sacral in place. IMPRESSION: 1. Partially visualized opacity at the right infrahilar lung. CT chest will be helpful for further evaluation. 2. Hydronephrosis right kidney with double-J stent in place. The distal portion of the stent overlies the distal right ureter now within the bladder. Multiple stones right kidney. 3. Bernal catheter within the bladder. 4. Marked diverticulosis of colon but no acute change of the bowel. Assessment/Plan Assessment/Plan pt with right stone and hydro despite stent. When agreed upon by family/POA, would recommend right ureteroscopy-laser stone-stent exchange. Copies To: NAKUL FARAH MD Consult Acknowledgment - Thank you for your consult request. Attending MD Review Statement Attending Statement Attending MD Statement: examined this patient Attending Assessment/Plan: pt with multiple severe medical problems, presents with abd. pain and right stones with hydro despite stent. Would like to have pt undergo right ureteroscopy/laser stones/stent change if medically clear to do so, and family agreeing to proceed despite high risk of morbidity/mortality.
[2016-11-28 22:06] VITALS: BP 118/72
--- NOTE | 2016-11-28 22:56 | NUR ---
PATIENT ALERT, VITAL SIGNS STABLE. ON ROOM AIR NO DISCOMFORT NOTED AT THIS TIME. PATIENT PUT ON A SIZEWISE MATTRESS. BOTTOM IS RED AND BLANCHABLE. TURNED AND REPOSITIONED Q2. GLOVER CARE GIVEN. WILL CONTINUE TO MONITOR
[2016-11-29 08:10] VITALS: BP 120/72
--- NOTE | 2016-11-29 10:45 | CT SCAN REPORT ---
EXAMINATION: CT CHEST WITH CONTRAST CLINICAL INFORMATION: History of lung cancer. New lung lesion. COMPARISON: CT abdomen pelvis and chest x-ray 11/27/2016. Chest CT 06/25/2015 TECHNIQUE: Multidetector volumetric CT imaging of the chest was obtained after the administration of 50 mL of Optiray 320 intravenous contrast without immediate adverse reactions. Axial MIP volume rendering provided. Sagittal and coronal reformatted images were obtained. DLP: 187 mGy-cm. FINDINGS: Again noted are postsurgical and radiation therapy changes of the right hemithorax resulting in volume loss and mediastinal shift to the right. There are prominent perihilar bronchiectasis changes which appear relatively stable. There is significant interval reduction of a right-sided pleural effusion, now small in size. Focal soft tissue density within the right infrahilar region is nonspecific. Scarring and biapical architectural distortion is again noted. The left lung is well aerated. Trace posterior pleural thickening of the left lung. Scattered minimal airways with mucus impaction. Scattered subcentimeter nodularities along the lateral aspect of the right major fissure (image [id number], series 5). The heart is normal in size. Coronary artery calcifications are present. No pericardial effusion. Mild to moderate atherosclerotic disease of a normal caliber thoracic aorta. No gross mediastinal or hilar lymphadenopathy. No enlarged axillary lymph nodes. Visualized portions of the upper abdomen demonstrate the superior portions of an aortic stent graft. A right ureteral stent is partially visualized on novelty maker imaging. Degenerative changes of the thoracic spine. L1 compression deformity, acuity unknown but new from 2014. IMPRESSION: Again noted are postsurgical and postradiation changes of the right hemithorax with resulting volume loss and bronchiectasis. There has been interval reduction in the right sided pleural effusion, now small. Focal soft tissue density is appreciated within the right infrahilar region which was not definitively visualized previously. There was a large pleural effusion in this region which might have obscured this finding. This potentially represents post treatment changes, however, recurrent disease cannot be entirely excluded. Similarly, nonspecific nodularity is demonstrated along the lateral aspect of the right major fissure. Short-term interval follow-up is recommended.
--- NOTE | 2016-11-29 12:46 | PN- Housestaff ---
Subjective Follow-up For: UTI Hypertension Subjective: She is seen and examined at bedside. Patient does not endorse any acute complaints including fever, chills, nausea abdominal pain, chest pain, palpitation, shortness of breath or dysuria. No acute overnight event reported by nursing staff. Review of Systems Constitutional: Denies: see HPI. Objective Last 24 Hrs of Vital Signs/I&O Vital Signs Date Time Temp Pulse Resp B/P Pulse O2 O2 Flow FiO2 Ox Delivery Rate 11/29 0845 97 120/72 11/29 0810 97.4 97 20 120/72 96 Room Air 11/28 220 97.9 112 20 118/72 95 11/28 1632 97.9 90 20 144/93 97 Intake & Output 11/29 1600 11/29 0800 11/29 0000 Intake Total 1290 200 Output Total 600 2050 1475 Balance -600 -760 -1275 Intake, IV 1050 Intake, Oral 240 200 Output, Urine 600 0 1475 Physical Exam General Appearance: Alert, Oriented X3, Cooperative Other Physical Findings: Skin No Rashes HEENT Atraumatic, PERRLA, EOMI, Mucous Membr. moist/pink Neck Supple, No JVD Lymphatic Cervical nl Cardiovascular Regular Rate, Normal S1, Normal S2, No Murmurs Lungs Clear to Auscultation, Normal Air Movement Abdomen Normal Bowel Sounds, Soft, SUPRAPUBIC TENDERNESS Neurological Normal Speech, Strength at 5/5 X4 Ext, Normal Tone, Sensation Intact, Cranial Nerves 3-12 NL Extremities No Edema Vascular Normal Pulses, Pulses Symmetrical, capillari refill normal Current Medications: Current Medications Sig/Cirilo Start time Last Medication Dose Route Stop Time Status Admin Amitriptyline HCl 25 MG AT BEDTIME 11/28 2199 AC 11/28 PO 2159 Amlodipine Besylate 5 MG DAILY 11/28 1000 AC 11/29 PO 0845 Ceftriaxone Sodium 1,000 MG 11/28 AC 11/28 IV 2159 Dextrose/Sodium 1,000 ML Q6H 11/27 2330 DC 11/29 Chloride IV 0521 Docusate Sodium 100 MG DAILY 11/28 1000 AC 11/29 PO 0845 Donepezil HCl 10 MG DAILY 11/28 1000 AC 11/29 PO 0845 Enoxaparin Sodium 40 MG DAILY 11/28 1000 DC 11/29 SC 0845 Escitalopram Oxalate 5 MG DAILY 11/28 1000 AC 11/29 PO 0845 Mirtazapine 7.5 MG AT BEDTIME 11/28 2200 AC 11/28 PO 2159 Polyethylene Glycol 17 GM DAILY 11/28 1000 AC 11/29 PO 0845 Potassium Chloride 20 MEQ Q13H 11/29 1130 AC 11/29 Dextrose/Sodium 1,000 ML IV 1148 Chloride Last 24 Hrs of Lab/Tommie Results Last 24 Hrs of Labs/Mics: Laboratory Tests 11/29/16 0920: Anion Gap 11, Estimated GFR > 60, BUN/Creatinine Ratio 16.0, TSH &T3 &Free T4 Intrp 2.480 Orders Radiology Findings: SERVICE DATE: 11/29/16 EXAM TYPE: CAT - CT CHEST W IV CONTRAST EXAMINATION: CT CHEST WITH CONTRAST CLINICAL INFORMATION: History of lung cancer. New lung lesion. COMPARISON: CT abdomen pelvis and chest x-ray 11/27/2016. Chest CT 06/25/2015 TECHNIQUE: Multidetector volumetric CT imaging of the chest was obtained after the administration of 50 mL of Optiray 320 intravenous contrast without immediate adverse reactions. Axial MIP volume rendering provided. Sagittal and coronal reformatted images were obtained. DLP: 187 mGy-cm. FINDINGS: Again noted are postsurgical and radiation therapy changes of the right hemithorax resulting in volume loss and mediastinal shift to the right. There are prominent perihilar bronchiectasis changes which appear relatively stable. There is significant interval reduction of a right-sided pleural effusion, now small in size. Focal soft tissue density within the right infrahilar region is nonspecific. Scarring and biapical architectural distortion is again noted. The left lung is well aerated. Trace posterior pleural thickening of the left lung. Scattered minimal airways with mucus impaction. Scattered subcentimeter nodularities along the lateral aspect of the right major fissure (image [id number], series 5). The heart is normal in size. Coronary artery calcifications are present. No pericardial effusion. Mild to moderate atherosclerotic disease of a normal caliber thoracic aorta. No gross mediastinal or hilar lymphadenopathy. No enlarged axillary lymph nodes. Visualized portions of the upper abdomen demonstrate the superior portions of an aortic stent graft. A right ureteral stent is partially visualized on duct layer imaging. Degenerative changes of the thoracic spine. L1 compression deformity, acuity unknown but new from 2014. IMPRESSION: Again noted are postsurgical and postradiation changes of the right hemithorax with resulting volume loss and bronchiectasis. There has been interval reduction in the right sided pleural effusion, now small. Focal soft tissue density is appreciated within the right infrahilar region which was not definitively visualized previously. There was a large pleural effusion in this region which might have obscured this finding. This potentially represents post treatment changes, however, recurrent disease cannot be entirely excluded. Similarly, nonspecific nodularity is demonstrated along the lateral aspect of the right major fissure. Short-term interval follow-up is recommended. DICTATED BY: FLORI GAN MD Assessment/Plan Assessment: This is 71-year-old pleas[place] lay with past medical history of lung cancer status post chemoradiation-, advanced dementia, migraine headache, hypertension, hyperlipidemia, nephrolithiasis status post ESWL and right ureteral j-tube placement- late 2014 or early 2015, urinary incontinence, recurrent UTI currently on maintenance dose nitrofurantoin was brought in by ambulance from [facility] after patient found confused, lethargic with fever of 101.6. Impression * Obstructive uropathy with radiological evidence of hydronephrosis, patient has a history of nephrolithiasis with stent placement and is actively followed by urology. * Hypokalemia * UTI. * History of lung cancer * Pleural effusion Plan * Discussed with Dr. Oconnell who is planning for ureteroscope and laser therapy for nephrolithiasis and stent displacement. Per medical team, patient is okay to proceed with proposed urological prcedure. Also discussed with daughter who is the POA regarding tomorrow's procedure. * Was switch fluids to D5 half normal saline 75mls/hr with 20 mEq potassium to replenish for hypokalemia * Continue ceftriaxone therapy for UTI (day 3). Patient remains afebrile with no leukocytosis. In the setting of instrumentation will continue antibiotic and reassess after procedure. * Will continue home medication for chronic conditions hypertension and dementia. Problem List: 1. Ureteral stone with hydronephrosis 2. UTI (urinary tract infection) Pain Ratin Pain Location: none Pain Goal: Remain pain free Pain Plan: APAP for mild pain oxycodone for moderate pain Tomorrow's Labs & Rationales: BEP: Hydronephrosis/nephrolithiasis with Hypokalemia Consulting Request: Consulting Specialty: Urology
--- NOTE | 2016-11-29 13:22 | PN- Att Addend ---
Attending MD Review Statement Attending Statement Attending MD Statement: examined this patient, discuss w/resident/PA/BRIGADIER, agreed w/resident/PA/BRIGADIER, reviewed EMR data (avail) Attending Assessment/Plan: 71-year-old female with past medical history of lung cancer status post chemoradiation- unclear when last f/u with oncology was per patients daughter, advanced dementia, migraine headache, hypertension, hyperlipidemia, nephrolithiasis status post ESWL and right ureteral j-tube placement- late 2014 or early 2015, urinary incontinence, recurrent UTI currently on maintenance dose nitrofurantoin was brought in by ambulance from [facility] after patient found confused, lethargic with fever of 101.6. CT scan finding of Hydronephrosis right kidney with double J-stent in place, multiple stones right kidney. A/p Obstructive uropathy with complicated UTI- cont iv ceftriaxone, urology to take her to OR tomorrow- 11/30/16 Infrahilar lung opacity- will get CT chest today 11/30/16 to find out more about the opacity. Pt is ok to go to OR without any further cardiac workup. Reviewed her EKG and last Echo, low amplitude on EKG , will repeat her TSH. Hypokalemia being replaced.
[2016-11-29 15:43] VITALS: BP 110/60
[2016-11-29 23:40] VITALS: BP 124/69
--- NOTE | 2016-11-30 04:18 | NUR ---
PATIENT ALERT AND ORIENTED X 2. NPO AFTER MIDNIGHT FOR PROCEDURE IN THE MORNING. IV FLUID DISCONTINUED. VARNISHING UNIT OPERATOR MANOLO NOTIFIED. NO NEW ORDER GIVEN REGARDING IV FLUID. WILL CONTINUE TO MONITOR.
--- NOTE | 2016-11-30 07:26 | PN- Housestaff ---
Subjective Follow-up For: UTI Obstructive uropathy Subjective: She is seen and examined at bedside. Patient does not endorse any acute complaints including fever, chills, nausea abdominal pain, chest pain, palpitation, shortness of breath or dysuria. No acute overnight event reported by nursing staff. Review of Systems Constitutional: Reports: no symptoms. Objective Last 24 Hrs of Vital Signs/I&O .. Physical Exam General Appearance: Alert, Oriented X3, Cooperative Other Physical Findings: HEENT Atraumatic, PERRLA, EOMI, Mucous Membr. moist/pink Neck Supple, No JVD Lymphatic Cervical nl Cardiovascular Regular Rate, Normal S1, Normal S2, No Murmurs Lungs Clear to Auscultation, Normal Air Movement Abdomen Normal Bowel Sounds, Soft, SUPRAPUBIC TENDERNESS Neurological Normal Speech, Strength at 5/5 X4 Ext, Normal Tone, Sensation Intact, Cranial Nerves 3-12 NL Extremities No Edema Vascular Normal Pulses, Pulses Symmetrical, capillari refill normal Assessment/Plan Assessment: This is 71-year-old [place] with past medical history of lung cancer status post chemoradiation-, advanced dementia, migraine headache, hypertension, hyperlipidemia, nephrolithiasis status post ESWL and right ureteral j-tube placement- late 2014 or early 2015, urinary incontinence, recurrent UTI currently on maintenance dose nitrofurantoin was brought in by ambulance from [facility] after patient found confused, lethargic with fever of 101.6. Impression * Obstructive uropathy with radiological evidence of hydronephrosis, patient has a history of nephrolithiasis with stent placement and is actively followed by urology. * Hypokalemia * UTI. * History of lung cancer with recent finding of possible changes. Plan * Pt scheduled for ureteroscope today. * Was switch fluids to D5 half normal saline 75mls/hr with 20 mEq potassium to replenish for hypokalemia * Continue ceftriaxone therapy for UTI (day 3). Patient remains afebrile with no leukocytosis. In the setting of instrumentation will continue antibiotic and reassess after procedure. * Will continue home medication for chronic conditions hypertension and dementia. * Follow-up CT on an outpatient basis to assess changes in lung pathology in the setting of malignancy and previous chemotherapy/radiation therapy Problem List: 1. Ureteral stone with hydronephrosis 2. UTI (urinary tract infection) Pain Ratin Pain Location: none Pain Goal: Remain pain free Pain Plan: Acetamiophen for mild pain oxycodone for moderate pain Tomorrow's Labs & Rationales: BEP: Obstructive uropathy with hypokalemia Consulting Request: Consulting Specialty: Urology
--- NOTE | 2016-11-30 07:40 | Discharge Summary ---
Visit Information Visit Dates Admission Date: 11/28/16 Discharge Date: 12/02/2016 Hospital Course Course Attending Physician: RUI FIORE,STEPHANIA Lane Primary Care Physician: RIVKA FIORE,JOANNE Stinson Consulting Request: Consulting Specialty: Urology Hospital Course: This is 71-year-old female with past medical history of lung cancer status post chemoradiation, advanced dementia, migraine headache, hypertension, hyperlipidemia, nephrolithiasis status post ESWL and right ureteral j-tube placement, urinary incontinence, recurrent UTI currently on maintenance dose nitrofurantoin was brought in by ambulance from [facility] after patient found confused, lethargic with fever of 101.6. Patient had recurrent UTIs in the past and most recently was treated for urinary infection 2 weeks prior to admission. In ER patient noted afebrile. Patient received total of 4 L of IV fluid hydration with significant blood pressure improvement in mental status improvement. On evaluation in ER patient was pleasant lying comfortably in bed. On questioning patient complained of suprapubic pain denied any urinary frequency, burning. Patient also denies any chest pain, shortness of breath, nausea, vomiting, sick contact, abdominal pain, weakness. Vital Signs Date Time Temp Pulse Resp B/P Pulse O2 O2 Flow FiO2 Ox Delivery Rate 11/28 0038 98.2 90 18 128/68 96 Room Air 11/27 2058 98.3 11/27 2058 98.3 11/27 1935 98 Room Air 11/27 1915 98.1 124 18 130/64 93 Room Air Physical Exam General Appearance Alert, No Acute Distress, ORIENTED TO SELF, NOT TO PLACE AND TIME Skin No Rashes HEENT Atraumatic, PERRLA, EOMI, Mucous Membr. moist/pink Neck Supple, No JVD Lymphatic Cervical nl Cardiovascular Regular Rate, Normal S1, Normal S2, No Murmurs Lungs Clear to Auscultation, Normal Air Movement Abdomen Normal Bowel Sounds, Soft, SUPRAPUBIC TENDERNESS Neurological Normal Speech, Strength at 5/5 X4 Ext, Normal Tone, Sensation Intact, Cranial Nerves 3-12 NL Extremities No Edema Vascular Normal Pulses, Pulses Symmetrical, capillari refill normal Last 24 Hrs of Labs/Tommie: Laboratory Tests 11/27/16 2300: Urinalysis LIGHT H, Urine Color YEL, Urine Clarity TURBD H, Urine pH 8.5 H, Ur Specific [place] 1.020, Urine Protein 100 H, Urine Ketones NEG, Urine Nitrite NEG, Urine Bilirubin NEG, Urine Urobilinogen 0.2, Ur Leukocyte Esterase LARGE H, Ur Microscopic SEDIMENT EXAMINED, Urine RBC 15-25 H, Urine WBC > 75 H, Ur Epithelial Cells PACKD H, Granular Casts RARE H, Urine Mucus MOD H, Urine Hemoglobin LARGE H, Urine Glucose NEG 11/27/16 2259: Lactic Acid Cancelled 11/27/162044: Anion Gap 12, Estimated GFR > 60, BUN/Creatinine Ratio 42.2 H, Glucose 97, Lactic Acid 1.2, Calcium 8.4, Total Bilirubin 0.6, AST 21, ALT 31, Alkaline Phosphatase 141 H, Troponin I 0.02, Total Protein 6.2 L, Albumin 3.0 L, Globulin 3.2, Albumin/Globulin Ratio 0.9 L, PT 13.9 H, INR 1.33 H, APTT 33, CBC w Diff NO MAN DIFF REQ, RBC 4.32, MCV 90.1, MCH 29.7, RDW 14.3, MPV 7.7, Gran % 72.3, Lymphocytes % 13.3 L, Monocytes % 13.1 H, Eosinophils % 0.5, Basophils % 0.8, Absolute Granulocytes 4.9, Absolute Lymphocytes 0.9 L, Absolute Monocytes 0.9 H, Absolute Eosinophils 0, Absolute Basophils 0.1, PUBS MCHC 32.9 L Microbiology 11/27 2299 URINE ROUT: Urine Culture - RECD 11/27 2044 BLOOD: Blood Culture - RECD 11/27 2029 BLOOD: Blood Culture - RECD Diagnostic Data EKG Results Normal sinus rhythm at rate of 98, no acute ST-T changes, QTC 491 CXR Results Unremarkable. No acute change of the chest. Other Results CT ABD & PELVIS W IV CONTRAST: 1. Partially visualized opacity at the right infrahilar lung. 2. Hydronephrosis right kidney with double-J stent in place. The distal portion of the stent overlies the distal right ureter now within the bladder. Multiple stones right kidney. 3. Bernal catheter within the bladder. 4. Marked diverticulosis of colon but no acute change of the bowel. Patient was admitted to general floor and treated for these medical conditions #Complicated UTI in setting of obstructive uropathy and right hydronephrosis/ encephalopathy due to infection Patient was put on IV hydration and IV ceftriaxone. Urology was on board and patient underwent ureteroscopy with laser lithotrypsy and right stent exchange. Her vital signs were stable and no fever are observed. She mental status improved significantly. Urine cultures showed Escherichia coli sensitive to cefazolin/Augmentin. Upon discharge patient medication was changed from ceftriaxone to Augmentin #Right-sided lung lesion in mid lobe Patient had a history of lung cancer status post chemotherapy and radiotherapy. New chest CT scan in the hospital showed:Focal soft tissue density is appreciated within the right infrahilar region which was not definitively visualized previously. Patient was advised to follow-up with her oil distributor tender for further workup and possibly PET scan for this new finding. #Dementia, depression, hypertension We continued Aricept, amitriptyline, Lexapro, Remeron, amlodipine. No major events was observed. Allergies: Coded Allergies: doxycycline (UNKNOWN - PER PT SON 01/15/16) Disposition Summary Disposition Principal Diagnosis: UTI to to obstructive uropathy Encephalopathy due to infection Additional Diagnosis: Dementia Discharge Disposition: SNF Discharge Instructions General Discharge Information Code Status: Do Not Resucitate/Intubat Patient's Diet: Heart healthy Patient's Activity: As tolerated Follow-Up Instructions/Appts: -Please follow-up with your primary care provider within 7 days after discharge. -Please follow-up with your urologist 2 weeks after discharge -Please follow-up with your oil distributor tender regarding the new findings in your chest CT scan. -We have made changes to your home medications, please read the instructions carefully. -Please come back to the hospital if your symptoms got worse. Medications at Discharge Discharge Medications: Continue taking these medications: AMITRIPTYLINE HCL (Amitriptyline Hydrochloride) 25 MG TABLET 1 Tablet ORAL TAKE AT BEDTIME Qty = 30 Comments: LAST TAKEN 09/13/15 AT 2200 Linaclotide (Linzess) 145 MCG CAPSULE 1 Capsule ORAL DAILY Qty = 30 Donepezil Hydrochloride (Aricept) 10 MG TAB 1 Tablet ORAL DAILY Comments: LAST TAKEN 09/14/15 AT 10AM Naproxen (Naprosyn) 250 MG TAB 1 Tablet ORAL TWICE DAILY Escitalopram Oxalate (Lexapro 5MG) 5 MG TAB 1 Tablet ORAL DAILY Comments: LAST TAKEN 09/14/15 AT 10AM Mirtazapine (Remeron 7.5MG (1/2 Of 15MG)) 7.5 MG HTAB 1 Tablet ORAL TAKE AT BEDTIME Days = 30 Amlodipine (Norvasc 5MG Tab) 5 MG TAB 1 Tablet ORAL DAILY Comments: LAST TAKEN 09/14 AT 10AM Docusate Sodium (Colace) 100 MG SGL 1 SGL ORAL DAILY Lactose-Reduced Food (Ensure Liquid) 237 ML LIQUID Start taking the following new medications: Amoxicillin/Potassium Clav (Augmentin 875-125 Tablet) 875 MG-125 MG TABLET 1 Tablet ORAL TWICE DAILY Qty = 12 No Refills Comments: FIRST DOSE TO START TONIGHT 12/02/16 Copies To: VIJAYA FIORE,Olivia MON; GAGAN FIORE,NAKUL Attending MD Review Statement Documenting Attending: RUI FIORE,STEPHANIA Lane Other Findings: Pt was seen by Dr Jen Kc on the day of discharge Rt side stone with previous stent placement with CT showing rt side hydronephrosis and complicated UTI- pt underwent right side ureteroscopy with laser lithotrypsy of ureter stone encrusting stent, retrograde pyelogram with fluoroscopy, and right stent exchange on 11/30/16. Currently doing better. Rt leg calf pain- will get USG to r/o DVT. Will be dced on po abx.
[2016-11-30 08:50] VITALS: BP 141/80
--- NOTE | 2016-11-30 09:27 | NUR ---
PER DR FABIAN AND MEDICAL TEAM HOLD ALL AM MEDS THEY ARE NOT NECESSARY TO GIVEN SINCE PATIENT IS NPO FOR OR THIS AFTERNOON;
[2016-11-30] MEDS ORDERED: AUGMENTIN 875-1 EACH PO (15:13)
--- NOTE | 2016-11-30 15:16 | Patient Discharge Instructions ---
Discharge Instructions General Discharge Information You were seen/treated for: Urosepsis due to obstructive uropathy Special Instructions: PLEASE FOLLOW UP WITH YOUR PRIMARY CARE WITHIN 1 WEEK, PLEASE INFORM YOUR PRIMARY CARE ABOUT DOING A FOLLOW UP SCAN (CT) OF YOUR CHEST PLEASE FOLLOW UP WITH DR FARAH WITHIN 1-2 WEEKS Diet Continue normal diet: Yes Activity Full Activity/No Limits: Yes (as tolerated) Acute Coronary Syndrome Inclusion Criteria At DC or during hospital stay patient has or had the following: ACS DIAGNOSIS No Discharge Core Measures Meds if any: Prescribed or Continued at Discharge Meds if any: NOT Prescribed or Continued at Discharge Congestive Heart Failure Inclusion Criteria At DC or during hospital stay patient has or had the following: CHF DIAGNOSIS No Discharge Core Measures Meds if any: Prescribed or Continued at Discharge Meds if any: NOT Prescribed or Continued at Discharge Cerebrovascular accident Inclusion Criteria At DC or during hospital stay patient has or had the following: CVA/TIA Diagnosis No Discharge Core Measures Meds if any: Prescribed or Continued at Discharge Meds if any: NOT Prescribed or Continued at Discharge Venous thromboembolism Inclusion Criteria VTE Diagnosis No VTE Type NONE VTE Confirmed by (Test) NONE Discharge Core Measures - Per Current guidelines, there needs to be overlap - treatment for the first 5 days of Warfarin therapy. - If discharged on Warfarin prior to 5 days of - overlap therapy, the patient will need to be - assessed for post discharge needs including - *Post discharge parental anticoagulation - *Warfarin and/or parental anticoagulation education - *Follow up date to check INR post discharge At least 5 days overlap therapy as Inpatient No Meds if any: Prescribed or Continued at Discharge Note: Overlap Therapy is Warfarin and Anticoagulant Meds if any: NOT Prescribed or Continued at Discharge
--- NOTE | 2016-11-30 15:34 | PN- Att Addend ---
Attending MD Review Statement Attending Statement Attending MD Statement: examined this patient, discuss w/resident/PA/PAID INTERN, agreed w/resident/PA/PAID INTERN, reviewed EMR data (avail), discussed w/nursing Attending Assessment/Plan: 71-year-old female with past medical history of lung cancer status post chemoradiation- unclear when last f/u with oncology was per patients daughter, advanced dementia, migraine headache, hypertension, hyperlipidemia, nephrolithiasis status post ESWL and right ureteral j-tube placement- late 2014 or early 2015, urinary incontinence, recurrent UTI currently on maintenance dose nitrofurantoin was brought in by ambulance from [facility] after patient found confused, lethargic with fever of 101.6. CT scan finding of Hydronephrosis right kidney with double J-stent in place, multiple stones right kidney. A/p Obstructive uropathy with complicated UTI- cont iv ceftriaxone, urology to take her to OR today- 11/30/16 Infrahilar lung opacity- CT chest done shows chronic changes , will need f/u CT as an outpatient . will f/u with her oncologist as an outpatient Hypokalemia- resolved.
[2016-11-30 16:00] VITALS: BP 102/78
--- NOTE | 2016-11-30 17:01 | Operative Report ---
Operative/Inv Procedure Report Surgery Date: 11/30/16 Name of Procedure: cystoscopy: RIGHT:ureteroscopy with laser lithotrypsy of ureter stone encrusting stent, retrograde pyelogram with fluoroscopy, and right stent exchange. Pre-Operative Diagnosis: right hydro. old stent and ureter and renal pelvis stones. Post-Operative Diagnosis: same: right ureter stone encrusting stent. Estimated Blood Loss: less than 50ml Surgeon/Vice President Of Engineering: MD GAGAN, [facility] Anesthesia: laryngeal mask airway Drains: 18FR GLOVER Specimens: RIGHT URETER STONE, AND RIGHT OLD STENT. Microbiology: RIGHT RENAL PELVIS FLUID Complications: NONE Condition: IMPROVED Operative/Procedure Note Note: The patient was taken to the operating room and placed on the OR table in supine position. With the patient awake, timeout was performed in order to confirm; correct patient, correct procedure, as well as correct laterality, and other pertinent lauryn-operative information. After adequate anesthesia and antibiotics (ROCEPHIN 1GM IV), the patient was then placed lithotomy stirrups, draped and prepped in the usual surgical fashion. A 22 Scottish cystoscope sheath with 30 angle lens was inserted into the bladder without difficulty. Upon entering the bladder, the bladder was noted to be free of tumor free of stone. Both orifices were in their orthotopic position. The right ureter orifice was intubated with an old right stent. The stent was grasped with a alligator grasper, and with gentle tugging, the stent was resistant to extraction. A 0.035 Glidewire was advanced into the right ureter alongside the right stent advanced into the right renal pelvis without difficulty. Fluoroscopy reveals 2 stones, the largest one being in the right renal pelvis, and the smaller one in the mid ureter. An 8fr cone-tip catheter, and a retrograde pyelogram with fluoroscopy was performed. An 8 mm right mid- ureter filling defect c/w stone encrusting the stent was visualized, as well as, mild right proximal hydronephrosis. Leaving the Glidewire in place, the cystoscope was removed. An 8 Scottish ureteral access sheath was railroaded over the Glidewire, and advanced into the right distal ureter following the Glidewire , under fluoroscopic visualization. The obturator was removed. The flexible ureteroscope was ealily inserted into the ureteral access sheath, and the ureteroscope was advanced easily and gently into the mid-ureter, and the large ureteral stone was visualized. Under direct visualization the 200 g holmium YAG laser fiber was inserted through the ureteroscope. With the laser fiber in direct contact with the stone, laser lithotripsy was performed in order to pulverize the stone into multiple tiny fragments. The fragments were all flushed out and sent to pathology for analysis. A few small fragments were removed and sent to pathology. At this point, the ureteroscope was then gently advanced into the right renal pelvis without difficulty. Multiple small other stones, were visualized in the renal pelvis, and right mid calyx. The ureteroscope was removed along with the ureteral access sheath. The 22 Scottish cystoscope was then reinserted into the bladder without difficulty. The right stent was grasped with alligator forcep, and a stent was extracted without any difficulty at this time. The 22 Scottish cystoscope sheath with a 30 angle lens was then reinserted into the bladder, with the Glidewire back loaded into the scope. A new 7 x 24 Bard Opti-Lay ureteral stent was inserted over the Glidewire. With the proximal coil advanced into the right renal pelvis, confirmed on fluoroscopy, and the distal coil seen in the bladder, cystoscopically, the Glidewire was removed and the stent remained in proper place. The bladder was then drained, and the cystoscope was removed. The patient tolerated the procedure well was then taken to the recovery room in satisfactory condition. All sponge needle and instrument count were correct at the end of the case. The patient is to be readmitted medicine, and will have a follow-up right renal ESWL and stent change in 3-4 months. Discharge Disposition: PACU Additional Comments: DC HOME PER MEDICINE: F/U FOR RIGHT RENAL ESWL AND STENT CHANGE IN 3 MONTHS. CC: GAGAN FIORE,NAKUL
--- NOTE | 2016-11-30 22:20 | RADIOLOGY REPORT ---
EXAMINATION: XR ABDOMEN CLINICAL INDICATION: Ureteroscopy and right stent exchange. COMPARISON: 11/27/2016 TECHNIQUE: Single fluoroscopic image of the abdomen. Total fluoroscopy time 89 seconds. FINDINGS: Single fluoroscopic image of the abdomen demonstrates the proximal extent of a right ureteral stent. IMPRESSION: Fluoroscopy provided for right ureteral stent exchange.
[2016-12-01 00:01] VITALS: BP 100/62
--- NOTE | 2016-12-01 07:09 | PN- Housestaff ---
Subjective Follow-up For: Obstructive uropathy UTI Subjective: Patient is seen and examined at bedside. Patient does not endorse any acute complaints including fever, chills, nausea, vomiting, chest pain, palpitation, shortness of breath, abdominal pain or dysuria. Patient is postprocedure day 1 status post ureteroscope and laser lithotripsy. No acute overnight event noted by nursing staff. Report of no bowel movement since admission is noted. Review of Systems Constitutional: Denies: see HPI. Objective Last 24 Hrs of Vital Signs/I&O Vital Signs Date Time Temp Pulse Resp B/P Pulse O2 O2 Flow FiO2 Ox Delivery Rate 12/02 0100 102 02/ 2356 98.6 112 18 104/60 92 Room Air 12/01 1726 98.2 102 18 100/57 95 02/ 1020 99.3 114 18 121/68 02/ 0813 98.1 102 20 110/68 94 Room Air Intake & Output 12/02 0800 12/02 0000 02 1600 Intake Total 200 360 Output Total 450 270 250 Balance -450 -70 110 Intake, IV 0 Intake, Oral 200 360 Number 0 2 Bowel Movements Output, Urine 450 270 250 Physical Exam General Appearance: Alert, Cooperative, No Acute Distress Other Physical Findings: Skin No Rashes HEENT Atraumatic, PERRLA, EOMI, Mucous Membr. moist/pink Neck Supple, No JVD Lymphatic Cervical nl Cardiovascular Regular Rate, Normal S1, Normal S2, No Murmurs Lungs Clear to Auscultation, Normal Air Movement Abdomen Normal Bowel Sounds, Soft, SUPRAPUBIC TENDERNESS Neurological Normal Speech, Strength at 5/5 X4 Ext, Normal Tone, Sensation Intact, Cranial Nerves 3-12 NL Extremities No Edema Vascular Normal Pulses, Pulses Symmetrical, capillari refill normal Assessment/Plan Assessment: This is 71-year-old pleas[place] lay with past medical history of lung cancer status post chemoradiation-, advanced dementia, migraine headache, hypertension, hyperlipidemia, nephrolithiasis status post ESWL and right ureteral j-tube placement- late 2014 or early 2015, urinary incontinence, recurrent UTI currently on maintenance dose nitrofurantoin was brought in by ambulance from [facility] after patient found confused, lethargic with fever of 101.6. Postprocedure day 1 status post ureteroscopy with lithotripsy. Impression * Obstructive uropathy with radiological evidence of hydronephrosis, patient has a history of nephrolithiasis with stent placement and is actively followed by urology. * Hypokalemia. Resolved * UTI. Day 4 of antibiotics. * History of lung cancer with recent finding of possible changes. * Leg pain. Right calf muscle pain that was transient. Plan * Postprocedure day 1 with no acute complication of anesthesia or bleeding. We' ll assess disposition on whether patient can be discharged today. We'll administer Dulcolax 10 mg per rectal as patient is a snf resident and hasn't had a bowel movement since admission. * Continue ceftriaxone therapy for UTI (day 4). Patient remains afebrile with no leukocytosis. Upon discharge will transition to Augmentin 875 mg twice a day to complete a total antibiotic course of 10 days. * Doppler u/s of extremity was negative for DVT. No further management as pain subsusded later and pt did not show signs of respiratory depression. * Will continue home medication for chronic conditions hypertension and dementia. * Follow-up CT on an outpatient basis to assess changes in lung pathology in the setting of malignancy and previous chemotherapy/radiation therapy Problem List: 1. UTI (urinary tract infection) 2. Ureteral stone with hydronephrosis Pain Ratin Pain Location: right leg Pain Goal: Pain 4 or less Pain Plan: APAP Tomorrow's Labs & Rationales: hannah-discharge Consulting Request: Consulting Specialty: Urology
[2016-12-01 08:13] VITALS: BP 110/68
--- NOTE | 2016-12-01 09:03 | NUR ---
PATIENT COMPLAINING OF R CALF TENDERNESS AND RATES THE PAIN 8/10; WHEN PALPATING THE R CALF PATIENT DOES GRIMACE; ALPS REMOVED; DR GARG NOTIFIED OF PATIENT COMPLAINT; PATIENT REPOSITIONED; AWAITING FURHTER ORDERS;
[2016-12-01 12:17] LABS: ABSOLUTE BASOPHIL COUNT 0 /CUMM (0.0-0.2); ABSOLUTE MONOCYTE COUNT 0.4 /CUMM (0.10-0.60); RBC DISTRIBUTION WIDTH 14.4 % (11.5-14.5)
[2016-12-01 12:37] LABS: ABSOLUTE EOSINOPHIL COUNT 0.4 /CUMM (0.0-0.7); ABSOLUTE GRANULOCYTE CT 13.9 /CUMM (1.4-6.5); ABSOLUTE LYMPH COUNT 0.2 /CUMM (1.2-3.4); BASOPHIL % 0.1 % (0.0-2.0); EOSINOPHIL % 2.6 % (0-5); GRANULOCYTE % 92.9 % (42.2-75.2); MEAN CORPUSCULAR HGB CONC 32.9 G/DL (33.0-37.0); MEAN CORPUSCULAR VOLUME 91.2 FL (81.0-99.0); PLATELET COUNT 282 /CUMM (130-400); RED BLOOD CELL CT 4.21 /CUMM (4.20-5.40)
[2016-12-01 12:39] LABS: HEMATOCRIT 38.4 % (37-47)
--- NOTE | 2016-12-01 13:42 | ULTRASOUND REPORT ---
EXAMINATION: US TRIPLEX LOWER EXTREMITY, RIGHT CLINICAL INFORMATION: Right leg pain. COMPARISON: None. TECHNIQUE: Color-flow triplex imaging with spectral analysis and compression Doppler were performed on the right lower extremity. FINDINGS: Respiratory variation, normal compression and augmented flow are noted throughout the lower extremity. The visualized common femoral vein, superficial femoral vein, profunda femoral vein, popliteal vein and midcalf peroneal and posterior tibial venous segments show no evidence of deep venous thrombosis. There is no Villatoro's cyst. IMPRESSION: Normal triplex scan without evidence of deep venous thrombosis involving the right lower extremity.
--- NOTE | 2016-12-01 15:20 | PN- Att Addend ---
Attending MD Review Statement Attending Statement Attending MD Statement: examined this patient, discuss w/resident/PA/ETHYLENE OXIDE PANELBOARD OPERATOR, agreed w/resident/PA/ETHYLENE OXIDE PANELBOARD OPERATOR, reviewed EMR data (avail), discussed w/nursing Attending Assessment/Plan: Rt side stone with previous stent placement with CT showing rt side hydronephrosis and complicated UTI- pt underwent right side ureteroscopy with laser lithotrypsy of ureter stone encrusting stent, retrograde pyelogram with fluoroscopy, and right stent exchange on 11/30/16. Currently doing better. will f/u with urology recommendations. Rt leg calf pain- will get USG to r/o DVT. Constipation- given stool softeners and tap water enema.
[2016-12-01 17:26] VITALS: BP 100/57
[2016-12-01 23:56] VITALS: BP 104/60
--- NOTE | 2016-12-02 08:06 | PN- Housestaff ---
FOREST FIORE,ROXANA 12/02/16 0805: Subjective Follow-up For: UTI Obstructive uropathy Subjective: Pt is seen and examined at bedside. Pt soes not offer any acute complaint, denies dysuria or fever/chills,n/v. Review of Systems Constitutional: Reports: no symptoms. Objective Last 24 Hrs of Vital Signs/I&O .. Physical Exam General Appearance: Alert, Oriented X3, Cooperative Assessment/Plan Assessment: This is 71-year-old pleas[place] lay with past medical history of lung cancer status post chemoradiation-, advanced dementia, migraine headache, hypertension, hyperlipidemia, nephrolithiasis status post ESWL and right ureteral j-tube placement- late 2014 or early 2015, urinary incontinence, recurrent UTI currently on maintenance dose nitrofurantoin was brought in by ambulance from [facility] after patient found confused, lethargic with fever of 101.6. Postprocedure day 1 status post ureteroscopy with lithotripsy. Impression * Obstructive uropathy Plan * Postprocedure day 2 with no acute complication of anesthesia or bleeding. We' ll assess disposition on whether patient can be discharged today. We'll administer Dulcolax 10 mg per rectal as patient is a retirement resident and hasn't had a bowel movement since admission. * Continue ceftriaxone therapy for UTI (day 4). Patient remains afebrile with no leukocytosis. Upon discharge will transition to Augmentin 875 mg twice a day to complete a total antibiotic course of 10 days. * Doppler u/s of extremity was negative for DVT. No further management as pain subsusded later and pt did not show signs of respiratory depression. * Will continue home medication for chronic conditions hypertension and dementia. * Follow-up CT on an outpatient basis to assess changes in lung pathology in the setting of malignancy and previous chemotherapy/radiation therapy Problem List: 1. Ureteral stone with hydronephrosis Pain Ratin Pain Location: none Pain Goal: Remain pain free Pain Plan: per pain pathway Tomorrow's Labs & Rationales: none Consulting Request: Consulting Specialty: Urology MARISA FIORE,MARCUS 12/02/16 1142: Attending Review Statement Attending Statement Attending MD Statement: examined this patient, discuss w/resident/PA/MANAGER INVESTIGATIONS, agreed w/resident/PA/MANAGER INVESTIGATIONS Attending Assessment/Plan: Patient seen and examined. Plan of care discussed with the medical team and the patient. Available lab work and radiology test reports were reviewed. . This morning patient appears comfortable. She status post stent placement yesterday. Bernal is draining slightly tinged urine. While signs are currently stable and patient is afebrile. Overnight she has mild tachycardia but this morning pulse was 93. Other vital signs stable. Abdomen soft nontender chest is clear. WBC count is 6.2. Assessment plan * Right hydronephrosis status post stent placement * Right nephrolithiasis * Hypokalemia resolved * UTI in setting of nephrolithiasis Plan -Complete 10 days of antibiotics - Patient stable for discharge
[2016-12-02 08:07] VITALS: BP 100/62
--- NOTE | 2016-12-02 09:58 | PN- Urology ---
Surgical Brief Attending Note Brief Attending Note: Pt at baseline neurologically without complaint and is very pleasant. VSS, afebrile. U/O adequate-yellow. abd soft without CVAT bilat. WBC noted to have been elevated post op day 1-likely atelectasis: recommen continued abd, and increase ambulation/pulmonary exercises. Would follow CBC, temps. Agree with plan for DC back to SNF. F/U 3 months for stent change.
[2016-12-02 10:53] LABS: ABSOLUTE BASOPHIL COUNT 0 /CUMM (0.0-0.2); ABSOLUTE EOSINOPHIL COUNT 0.2 /CUMM (0.0-0.7); ABSOLUTE GRANULOCYTE CT 5.1 /CUMM (1.4-6.5); ABSOLUTE LYMPH COUNT 0.4 /CUMM (1.2-3.4); ABSOLUTE MONOCYTE COUNT 0.4 /CUMM (0.10-0.60); BASOPHIL % 0.3 % (0.0-2.0); EOSINOPHIL % 3.7 % (0-5); GRANULOCYTE % 82.2 % (42.2-75.2); MEAN CORPUSCULAR HGB 29.9 PG (27.0-31.0); MEAN CORPUSCULAR HGB CONC 33.3 G/DL (33.0-37.0); MEAN CORPUSCULAR VOLUME 89.8 FL (81.0-99.0); MEAN PLATELET VOLUME 7.4 FL (7.4-10.4); PLATELET COUNT 210 /CUMM (130-400); RBC DISTRIBUTION WIDTH 14.5 % (11.5-14.5); RED BLOOD CELL CT 3.78 /CUMM (4.20-5.40)
[2016-12-02 11:01] LABS: WHITE BLOOD CELL COUNT 6.2 /CUMM (4.8-10.8)
[2016-12-02 12:09] VITALS: BP 100/62
== END 2016-12-02 13:30 | DRG 668 ==
LOC: ENRESERVTM → ENRESERVDT → ERH 19:15 → 2NB 11-28 00:37 → ENPENDDIS 11-28 00:37 → ERHI 11-28 00:37 → 2NB 11-28 03:06
PROVIDERS: Emergency Medicine; Internal Medicine; Student in an Organized Health Care Education/Training Program; ADMIT Student in an Organized Health Care Education/Training Program
PROC: 0TP98DZ Removal of Intraluminal Device from Ureter, Via Natural or Artificial Opening Endoscopic (ICD-10-PCS; principal; 2016-11-30)
PROC: 0TC68ZZ Extirpation of Matter from Right Ureter, Via Natural or Artificial Opening Endoscopic (ICD-10-PCS; principal; 2016-11-30)
PROC: 0T768DZ Dilation of Right Ureter with Intraluminal Device, Via Natural or Artificial Opening Endoscopic (ICD-10-PCS; principal; 2016-11-30)
DX: N39.0 Urinary tract infection, site not specified (principal); G93.49 Other encephalopathy; F03.90 Unspecified dementia, unspecified severity, without behavioral disturbance, psychotic disturbance, mood disturbance, and anxiety; Z85.118 Personal history of other malignant neoplasm of bronchus and lung; I10 Essential (primary) hypertension; E78.5 Hyperlipidemia, unspecified; I71.9 Aortic aneurysm of unspecified site, without rupture; N13.6 Pyonephrosis; Z66 Do not resuscitate; B96.20 Unspecified Escherichia coli [E. coli] as the cause of diseases classified elsewhere
CPT/HCPCS: 2NBP; 87075; 36415; 74000; 74177; 81001; 82355; 82436; 87040; 87086; 87804; 87804-59; 93005; 93010; 96361; 96365; 96375; 99291; C2617; J0131; J0696; J1650; J7042; Q9965